=== PATIENT | female | born 1990 | race Caucasian/White ===

== ENCOUNTER 2018-07-19 15:26 | Emergency (ER) | payer OTHER ==
[~2018-07-19] VITALS: Ht 157.5 cm; Wt 108.9 kg
[2018-07-19] MEDS ORDERED: LITHIUM CARBON300 M3 PO (15:37)
[2018-07-19] MEDS ORDERED: TRAZODONE HCL100 MG PO (15:37)
[2018-07-19] MEDS ORDERED: MINIPRESS2 MG PO (15:38)
[2018-07-19] MEDS ORDERED: NORCO 5-325 TA1 EACH PO (16:01)
[2018-07-19 16:17] VITALS: BP 116/83
== END 2018-07-19 16:18 | disposition home or self-care (01) ==
LOC: M.ERS 15:26
DX: M25.561 Pain in right knee (principal); F31.9 Bipolar disorder, unspecified; Z88.0 Allergy status to penicillin; Z88.8 Allergy status to other drugs, medicaments and biological substances; Z88.6 Allergy status to analgesic agent

== ENCOUNTER 2018-08-09 12:03 | Emergency (ER) | payer OTHER ==
[~2018-08-09] VITALS: Ht 167.6 cm; Wt 90.7 kg
[~2018-08-09 12:03] MED LIST: LITHIUM CARBON300 M3 PO; MINIPRESS2 MG PO; NORCO 5-325 TA1 EACH PO; TRAZODONE HCL100 MG PO
[2018-08-09] MEDS ORDERED: MINIPRESS2 MG PO (12:20)
[2018-08-09] MEDS ORDERED: ROBAXIN 750 MG750 M1 PO (12:59)
[2018-08-09 13:08] VITALS: BP 115/82
== END 2018-08-09 13:09 | disposition home or self-care (01) ==
LOC: M.ERS 12:03
DX: M54.5 Low back pain (principal); G89.29 Other chronic pain; F31.9 Bipolar disorder, unspecified; Z88.0 Allergy status to penicillin; Z88.5 Allergy status to narcotic agent; Z88.6 Allergy status to analgesic agent